=== PATIENT | male | born 1940 | race Caucasian/White ===

== ENCOUNTER 2016-05-15 06:23 | Emergency (ER) | payer MEDICARE, OTHER ==
[2016-05-15] MEDS ORDERED: DIPHTHERIA AND TETANUS (ADULT) 0.5 ML SYR IM ONE (06:29)
--- NOTE | 2016-05-15 06:32 | EDPRACDOC ---
- History of Present Illness HPI: PT PRESENTS AFTER SYNCOPAL FALL AT HOME. HE REPORTS PASSING OUT AND HITTING HIS LEFT HINDU. DENIES CURRENT PAIN. ALSO HAS SKN TEARS TO BILATERAL DORSAL HAND. HE WAS TREATED FOR THE FLU AND STREP THROAT LAST WEEK. Presyncopal phase:: Denies: Chest Pain, Headache, Palpitations Postsyncopal phase:: Reports: Rapid recovery Associated Signs/Symptoms: Denies: Abdominal pain, GI Bleed, Chest pain, Diarrhea, Fever, Headache, Nausea, Palpitations, SOB <Eliezer Tiwari - Last Filed: 05/15/16 07:18> - History of Present Illness Medications/Treatment MEDICAL [facility] EMS Treatment BLS <Bentley Allen - Last Filed: 05/15/16 11:14> - General Information Stated Complaint: FALL Time Seen by Provider: 05/15/16 06:26 Home Medications: Home Medications Cholecalciferol (Vitamin D3) [Vitamin D3] 1,000 unit PO DAILY 12/11/15 Cyanocobalamin (Vitamin B-12) [Cyanocobalamin Injection] 1,000 mcg IJ .MONTHLY 12/11/15 Losartan Potassium 100 mg PO DAILY 12/11/15 Lycopene 15 mg PO DAILY 12/11/15 Multivitamin [Multi-Day Vitamins] 1 each PO DAILY 12/11/15 Non-Stocked Medication [Non-Formulary Capsule] 1 tab PO DAILY 12/11/15 [place]-3 Fatty Acids/Fish Oil [Fish Oil 1,000 mg Capsule] 1 each PO DAILY Allergies/Adverse Reactions: Allergies Allergy/AdvReac Type Severity Reaction Status Date / Time No Known Allergies Allergy Verified 12/16/15 10:10 - Treatment Prior to ED Arrival Reported Medications/Treatment MEDICAL [facility] EMS Treatment BLS <Bentley Allen - Last Filed: 05/15/16 11:14> ED Past Medical History - History Reviewed Yes Nurses notes reviewed and agree except as marked - Patient Medical History Cardiac History: Reports: Hypertension Respiratory History: Denies: Pneumonia Musculoskeletal History: Reports: Arthritis (fingers) Surgical History: Reports: Cholecystectomy Date of Last Radiation Treatment: 2009 - Social Medical History Smoking Status: Never smoker Lives With: Spouse Lives In: Home <Eliezer Tiwari - Last Filed: 05/15/16 07:18> EDM Review of Systems - Review of Systems ROS Negative Except as Marked: Yes All systems reviewed and were negative except as marked Constitutional: Fatigue. negative: Fever Respiratory: negative: Shortness of Breath Cardiovascular: Syncope. negative: Chest Pain Gastrointestinal: negative: Pain, Vomiting <EtEliezer - Last Filed: 05/15/16 07:18> - Physical Exam Constitutional: Alert Oriented to: Time, Person, Place Last recorded Vital Signs: Oxygen Pulse Oxygen Saturation O2 Device Oxygen Flow Rate Fraction of Inspired Oxygen ( FIO2) - HEENT Head: Abrasion (SUPERIOR TO LEFT LATERAL EYEBROW). negative: Deformity, Laceration Eye Exam: negative: Conjunctival Injection, Pale Conjunctiva Oropharynx: Membranes Dry (TACKY) Nose: negative: Congestion, Discharge Neck: negative: Limited ROM - Respiratory/Cardiovascular Respiratory: Normal - CTA. negative: Accessory Muscle Use, Diminished, Tachypnea Cardiovascular: negative: Bradycardia, Tachycardia, Irregular - GI Auscultation: Normal Palpation: Normal Tenderness: Non tender - Musculoskeletal Extremities: Radial Pulse (PALPABLE) - Integumentary Skin: Warm, Dry, Other (HEMOSTATIC SKIN TOEARS TO BILATERAL DORSAL HANDS OVER HIS KNUCKLES. SINGLE KNUCKLE INVOLVEMENT EACH HAND.). negative: Rash - Neurologic Memory Impaired: Normal Motor Function: Normal Mood Description: Anxious, Appropriate Thought: Coherent Perception: Normal <Eliezer Tiwari - Last Filed: 05/15/16 07:18> - Physical Exam Last recorded Vital Signs: Last Vital Signs Temp 98 F 05/15/16 06:35 Pulse 58 L 05/15/16 06:35 Resp 20 05/15/16 06:35 BP 119/66 05/15/16 06:35 Pulse Ox 94 05/15/16 06:35 Oxygen Pulse Oxygen Saturation 94 O2 Device Room Air Oxygen Flow Rate Fraction of Inspired Oxygen ( FIO2) <Bentley Allen - Last Filed: 05/15/16 11:14> - Results 05/15/16 06:55 05/15/16 06:55 - EKG EKG #1 EKG Time: 06:59 -: Yes EKG interpreted by me Rate: bpm: 65 [place]: Normal Rhythm: NSR Block: None Hypertrophy: None ST: Normal <Eliezer Tiwari - Last Filed: 05/15/16 07:18> - Results 05/15/16 06:55 05/15/16 06:55 WBC 7.6 xk/uL (3.8-10.8) 05/15/16 06:55 RBC 5.19 xM/uL (4.70-6.10) 05/15/16 06:55 Hgb 15.0 g/dL (14.0-18.0) 05/15/16 06:55 Hct 44.9 % (42-52) 05/15/16 06:55 MCV 87 fL (80-94) 05/15/16 06:55 MCH 29.0 pg (27-32) 05/15/16 06:55 MCHC 33.5 g/dl (33-36) 05/15/16 06:55 RDW 13.4 % (11.5-14.5) 05/15/16 06:55 Plt Count 85 xk/uL (130-400) L 05/15/16 06:55 MPV 10.0 fL (7.4-10.4) 05/15/16 06:55 Neut % (Auto) 85.0 % (45-76) H 05/15/16 06:55 Lymph % (Auto) 7.2 % (17-44) L 05/15/16 06:55 [place] % (Auto) 7.1 % (3-10) 05/15/16 06:55 Eos % (Auto) 0.2 % (0-5) 05/15/16 06:55 Baso % (Auto) 0.5 % (0-2) 05/15/16 06:55 Absolute Neuts (auto) 6.46 xk/uL (1.7-8.2) 05/15/16 06:55 Absolute Lymphs (auto) 0.53 xk/uL (0.65-4.75) L 05/15/16 06:55 PT 11.5 SEC (9.2-11.2) H 05/15/16 06:55 INR 1.1 05/15/16 06:55 APTT 27.6 SEC (22-35) 05/15/16 06:55 Sodium 137 mEq/L (137-146) 05/15/16 06:55 Potassium 4.3 mEq/L (3.5-5.1) 05/15/16 06:55 Chloride 97 mEq/L (98-107) L 05/15/16 06:55 Carbon Dioxide 28 mMOL/L (22-33) 05/15/16 06:55 Anion Gap 16 mEq/L (8-16) 05/15/16 06:55 BUN 21 MG/DL (9-20) H 05/15/16 06:55 Creatinine 0.90 MG/DL (0.66-1.25) 05/15/16 06:55 Estimated GFR (MDRD) > 60 mL/min (>=60) 05/15/16 06:55 Glucose 147 MG/DL (70-99) H 05/15/16 06:55 Calculated Osmolality 270 MOs/Kg (270-290) 05/15/16 06:55 Calcium 9.0 MG/DL (8.4-10.2) 05/15/16 06:55 Total Bilirubin 1.2 MG/DL (0.2-1.3) 05/15/16 06:55 AST 30 IU/L (17-59) 05/15/16 06:55 ALT 34 IU/L (21-72) 05/15/16 06:55 Alkaline Phosphatase 58 IU/L (50-160) 05/15/16 06:55 Troponin I < 0.01 ng/mL (<.04) 05/15/16 06:55 Total Protein 7.0 G/DL (6.3-8.2) 05/15/16 06:55 Albumin 4.2 G/DL (3.5-5.0) 05/15/16 06:55 Lab Results 05/15/16 05/15/16 05/15/16 06:55 06:55 06:55 WBC 7.6 RBC 5.19 Hgb 15.0 Hct 44.9 MCV 87 MCH 29.0 MCHC 33.5 RDW 13.4 Plt Count 85 L MPV 10.0 Neut % (Auto) 85.0 H Lymph % (Auto) 7.2 L [place] % (Auto) 7.1 Eos % (Auto) 0.2 Baso % (Auto) 0.5 Absolute Neuts (auto) 6.46 Absolute Lymphs (auto) 0.53 L PT 11.5 H INR 1.1 APTT 27.6 Sodium 137 Potassium 4.3 Chloride 97 L Carbon Dioxide 28 Anion Gap 16 BUN 21 H Creatinine 0.90 Estimated GFR (MDRD) > 60 Glucose 147 H Calculated Osmolality 270 Calcium 9.0 Total Bilirubin 1.2 AST 30 ALT 34 Alkaline Phosphatase 58 Troponin I < 0.01 Total Protein 7.0 Albumin 4.2 - Additional Information 1015 - D/W DR PHIPPS [facility] - HE REVIEWED FILMS. NO NEED FOR ADMISSION IF CAUSE OF SYNCOPE DETERMINED. NO NEED FOR NEURO FOLLOW UP. (I FEEL PT SYNCOPIZED DUE TO MEDS (BENADRYL, ETC), ILLNESS. PT TOLD TO HOLD ASPIRIN FOR 5 DAYS. AND PT AND TOLD FOR WHAT SYMPTOMS TO RETURN. <Bentley Allen - Last Filed: 05/15/16 11:14> <Eliezer Tiwari - Last Filed: 05/15/16 07:18> Decision Time to Discharge: 10:20 - Departure Yes I personally saw and evaluated the patient. Disposition: Home Education/Counseling Given To: Patient, Family Member Education/Counseling Given Regarding: Diagnosis <Bentley Allen - Last Filed: 05/15/16 11:14> - Departure Condition: Stable Final Diagnosis: Syncope and collapse Subarachnoid hemorrhage following injury Qualifiers: Encounter type: initial encounter Loss of consciousness presence/duration: with LOC of 30 min or less Qualified Code(s): S06.6X1A - Traumatic subarachnoid hemorrhage with loss of consciousness of 30 minutes or less, initial encounter Concussion Qualifiers: Encounter type: initial encounter Loss of consciousness presence/duration: with LOC of 30 min or less Qualified Code(s): S06.0X1A - Concussion with loss of consciousness of 30 minutes or less, initial encounter Instructions: Concussion (ED) Referrals: Waqas Blas MD [Primary Care Provider] - One Week Additional Instructions: HOLD ASPIRIN FOR 5 DAYS.
[2016-05-15 06:35] VITALS: BMI 30.8
[2016-05-15 06:39] VITALS: TEMP 98
[2016-05-15 07:05] LABS: AUTOMATED BASOPHIL 0.5 % (0-2); AUTOMATED EOSINOPHIL 0.2 % (0-5); AUTOMATED LYMPH 7.2 % (17-44); AUTOMATED MONOCYTE 7.1 % (3-10)
[2016-05-15 07:17] LABS: PARTIAL THROMB. TIME 27.6 SEC (22-35); PT-INR 1.1
[2016-05-15 07:21] LABS: BLOOD UREA NITROGEN 21 MG/DL (9-20); CALCULATED OSMOLALITY 270 MOs/Kg (270-290); CHLORIDE 97 mEq/L (98-107); GLUCOSE 147 MG/DL (70-99); SODIUM LEVEL 137 mEq/L (137-146)
--- NOTE | 2016-05-15 07:55 | DIRPT ---
CLINICAL DATA: Patient with syncopal episode hitting head on the floor. Positive reported loss of consciousness. EXAM: CT HEAD WITHOUT CONTRAST TECHNIQUE: Contiguous axial images were obtained from the base of the skull through the vertex without intravenous contrast. COMPARISON: None. FINDINGS: Linear high attenuation demonstrated high within the right frontal lobe (image 26; series 2). Ventricles and sulci are appropriate for patient's age. Periventricular and subcortical white matter hypodensity compatible with chronic small vessel ischemic changes. The orbits are unremarkable. Mucosal thickening within the left maxillary sinus. Mastoid air cells are unremarkable. Calvarium is intact. IMPRESSION: Small area of linear high attenuation within the high right frontal lobe most compatible with small amount of subarachnoid hemorrhage. No significant mass effect. Critical Value/emergent results were called by telephone at the time of interpretation on 05/15/2016 at 7:[address] Bentley Allen, who verbally acknowledged these results. Electronically Signed By: Kristian Palafox M.D. On: 05/15/2016 07:53
--- NOTE | 2016-05-15 08:02 | DIRPT ---
CLINICAL DATA: Patient status post syncopal episode. EXAM: CHEST 2 VIEW COMPARISON: None. FINDINGS: Monitoring leads overlie the patient. Cardiac contours upper limits normal. Low lung volumes. Linear opacities within the lung bases bilaterally. No pleural effusion or pneumothorax. Mid thoracic spine degenerative changes. IMPRESSION: Low lung volumes with basilar opacities favored to represent atelectasis. Electronically Signed By: Kristian Palafox M.D. On: 05/15/2016 07:59
[2016-05-15 10:30] VITALS: BP 154/72; PULSE 88
== END 2016-05-15 10:27 | disposition home or self-care (01) ==
LOC: ED 06:23
DX: S06.6X1A Traumatic subarachnoid hemorrhage with loss of consciousness of 30 minutes or less, initial encounter (principal); W19.XXXA Unspecified fall, initial encounter; R55 Syncope and collapse; Z23 Encounter for immunization; I10 Essential (primary) hypertension; Z79.899 Other long term (current) drug therapy
CPT/HCPCS: 36415; 70450; 71020; 80053; 84484; 85025; 85610; 85730; 90471; 90714; 93005; 99284